=== PATIENT | male | born 1985 | race Caucasian/White ===

== ENCOUNTER 2018-08-28 13:22 | Emergency (ER) | payer SELFPAY ==
[~2018-08-28] VITALS: Ht 175.3 cm; Wt 86.2 kg
[~2018-08-28 13:22] MED LIST: HYDR-707 PO; NAPR-243 PO
--- NOTE | 2018-08-28 13:45 | ED Upper Extremity ---
General Stated Complaint: RT THUMB LAC Source: patient History of Present Illness Date Seen by Provider: Aug 28, 2018 Time Seen by Provider: 13:45 Right-hand dominant man who lacerated his right thumb while working today cutting a piece of flexible hose with a razor. His last tetanus shot was in the last 5 years. He denies any numbness tingling. Allergies and Home Medications Allergies Coded Allergies: No Known Drug Allergies (Unverified , 08/28/18) Home Medications No Active Prescriptions or Reported Meds Patient Home Medication List Home Medication List Reviewed: Yes Review of Systems Constitutional: no symptoms reported Skin: see HPI Past Hqnitit-Yvdezj-Mqsnqf Hx Past Med/Social Hx: Reviewed Nursing Past Med/Soc Hx Patient Social History Recent Foreign Travel: No Contact w/Someone Who Travel: No Physical Exam Vital Signs Vital Signs - First Documented 08/28/18 13:40 Temp 98.0 Pulse 60 Resp 16 B/P (MAP) 101/57 (72) Pulse Ox 99 O2 Delivery Room Air Capillary Refill : Height, Weight, BMI Height: '" Weight: lbs. oz. kg; BMI Method: General Appearance: WD/WN, no apparent distress HEENT: PERRL/EOMI Cardiovascular: regular rate, rhythm, no edema, no murmur Respiratory: chest non-tender, lungs clear, normal breath sounds, no respiratory distress Hand: normal ROM, Right, laceration (Distal phalange of the right thumb crescent shaped appears to be clean without debris) Neurologic/Psychiatric: no motor/sensory deficits, oriented x 3 Procedures/Interventions Wound Location: Upper Extremities (Right thumb) Wound Length (cm): 2 Wound's Depth, Shape: superficial, irregular ([place] shaped) Wound Explored: clean Irrigated w/ Saline (ccs): 250 Anesthesia: 1% Lidocaine (Digital block) Volume Anesthetic (ccs): 6 Suture: Plain, Ethlion Suture Size: 6-0 Number of Sutures: 3 Progress Dressing applied by the nurse Progress/Results/Core Measures Results/Orders My Orders Orders - NAHEED MERAZ MD Let Solution (Let Solution) (08/28/18 14:33) Lidocaine 1% Inj 20 Ml (Xylocaine 1% Inj (08/28/18 14:45) Let Solution (Let Solution) (08/28/18 14:45) Medications Given in ED Current Medications Medications Dose Ordered Sig/[place] Route Start Time Stop Time Status Last Admin Dose Admin Lidocaine HCl 20 ml ONCE ONCE INJ 08/28/18 14:45 08/28/18 14:47 DC 08/28/18 14:19 20 ML Tetracaine/ Epinephrine/ Lidocaine 1 ea ONCE ONCE TOP 08/28/18 14:45 08/28/18 14:47 DC 08/28/18 14:35 1 EA Vital Signs/I&O 08/28/18 08/28/18 13:40 15:31 Temp 98.0 98.0 Pulse 60 60 Resp 16 16 B/P (MAP) 101/57 (72) 101/57 (72) Pulse Ox 99 99 O2 Delivery Room Air Progress Progress Note : Progress Note Current care instructions and suture removal discussed by me. Strict return precautions discussed Departure Impression Primary Impression: Laceration of thumb Disposition: 01 HOME, SELF-CARE Condition: Improved Departure-Patient Inst. Decision time for Depature: 15:15 Referrals: NO,LOCAL PHYSICIAN (PCP/Family) Primary Care Physician Patient Instructions: Laceration Repair With Stitches (DC) Add. Discharge Instructions: sutures out in 7-10 days Scripts No Active Prescriptions or Reported Meds NAHEED MERAZ MD Aug 28, 2018 13:45
[2018-08-28] MEDS ORDERED: L.E.T. SYRINGE 5 ML ONE (14:33)
--- NOTE | 2018-08-28 14:35 | NUR ---
LET PLACED PER VERBAL ORDER.
[2018-08-28] MEDS ORDERED: L.E.T. SYRINGE 5 ML TOP ONE (14:45)
[2018-08-28] MEDS ORDERED: LIDOCAINE 1% INJ 20 ML 20 ML VIAL INJ ONE (14:45)
--- NOTE | 2018-08-28 15:00 | NUR ---
PT STATES HE THINKS HIS THUMB IS READY FOR SUTURES. NOTIFIED.
[2018-08-28 15:31] VITALS: BP 101/57
== END 2018-08-28 15:31 | disposition home or self-care (01) ==
LOC: EDUNIT# 13:22 → ER FS 13:24
DX: S61.011A Laceration without foreign body of right thumb without damage to nail, initial encounter (principal); W26.8XXA Contact with other sharp object(s), not elsewhere classified, initial encounter
CPT/HCPCS: 64450

== ENCOUNTER → 2020-07-17 | Outpatient (CLI) | payer BC | LOC: WOUNDCARE 09:20 | PROVIDERS: ATTEND Surgery | DX: I96 Gangrene, not elsewhere classified (principal); T21.33XA Burn of third degree of upper back, initial encounter; Y32.XXXA Crashing of motor vehicle, undetermined intent, initial encounter | CPT/HCPCS: 16020; A6260; G0463 ==

== ENCOUNTER → 2020-07-24 | Outpatient (CLI) | payer BC | LOC: WOUNDCARE 08:03 | PROVIDERS: ATTEND Surgery | DX: T21.33XA Burn of third degree of upper back, initial encounter (principal); Y32.XXXA Crashing of motor vehicle, undetermined intent, initial encounter; I96 Gangrene, not elsewhere classified | CPT/HCPCS: 16020; G0463 ==

== ENCOUNTER → 2020-07-31 | Outpatient (CLI) | payer BC | LOC: WOUNDCARE 08:04 | PROVIDERS: ATTEND Surgery | DX: T21.33XA Burn of third degree of upper back, initial encounter (principal); Y32.XXXA Crashing of motor vehicle, undetermined intent, initial encounter; I96 Gangrene, not elsewhere classified | CPT/HCPCS: 16020; G0463 ==

== ENCOUNTER → 2020-08-07 | Outpatient (CLI) | payer BC | LOC: WOUNDCARE 08:18 | PROVIDERS: ATTEND Surgery | DX: T21.33XA Burn of third degree of upper back, initial encounter (principal); Y32.XXXA Crashing of motor vehicle, undetermined intent, initial encounter; I96 Gangrene, not elsewhere classified | CPT/HCPCS: 99213 ==